=== PATIENT | male | born 1995 | race Caucasian/White ===

== ENCOUNTER 2016-05-09 03:06 | Emergency (ER) | payer MEDICAID, OTHER ==
[~2016-05-09] VITALS: Ht 157.5 cm; Wt 56.5 kg
[2016-05-09 03:51] VITALS: Ht 157.5 cm; Wt 56.5 kg
[2016-05-09] MEDS ORDERED: HYDR-906 PO (06:12)
--- NOTE | 2016-05-09 08:25 | ERD ---
ER Documentation Chief Complaint Date/Time DATE: 05/09/16 TIME: 08:23 Chief Complaint Shingles x4 days. Seen in urgent care. Given meds already HPI This is a 20-year-old male presenting to the emergency department complaining of a rash on the right side of his chest for the past 4 days. Patient states that the pain is sharp rating it 8 out of 10. Patient states that he was seen at [facility] urgent care and they have given him prescription for antiviral and gabapentin however they did not pick it up from the pharmacy yet. Patient is complaining of pain and unable to sleep with since last night ROS All systems reviewed and are negative except as per history of present illness. Medications Home Meds Active Scripts Hydrocodone/Acetaminophen ([place] 5-325 Tablet) 1 Each Tablet, 1 TAB PO Q6H Y for PAIN, #7 TAB Prov:JETT SLOAN PA-C 05/09/16 Allergies Allergies: Coded Allergies: No Known Allergy (Unverified , 05/09/16) PMhx/Soc Hx Alcohol Use: Yes Hx Substance Use: No Hx Tobacco Use: Yes Smoking Status: Current every day smoker Physical Exam Vitals Vital Signs Date Time Temp Pulse Resp B/P Pulse Ox O2 Delivery O2 Flow Rate FiO2 05/09/16 03:51 96.4 58 20 119/65 99 Physical Exam General: WD/WN, in no apparent distress, non-toxic appearing HENT: NC/AT Eyes: Conjunctiva normal Neck: Supple Pulm: Clear to auscultation, normal labored breathing; no wheezing/rales/ rhonchi heard CV: Good capillary refill GI: Non-distended, no guarding Back: No masses Ext: No clubbing, cyanosis, or edema Neuro: Moves on all fours Skin: Erythematous vesicles on the right side of the chest Normal turgor, color, and temperature. No ulcerations or rashes noted. Psych: Normal mood Procedures/MDM This is a 20-year-old male presenting to the emergency department with a rash on the right of his rash is most consistent with herpes zoster. Patient was already seen at [facility] urgent care and was given an antiviral and gabapentin however they were not unable to pepper picker from the pharmacy yet. Patient presents here for pain however I have offered to give him pain medications however they refused since they want to head over to the pharmacy to pepper picker the medication. I have not written any prescriptions since they are he had previous one. I will low suspicion for cellulitis, bacteremia. Patient stable for discharge. Discussed return to the ER for any worsening symptoms. He understands and agrees with Departure Diagnosis: Primary Impression: Shingles Condition: Stable Patient Instructions: Shingles (Herpes Zoster) Additional Instructions: Please take medications as prescribed by other physician La medicina que se le recet puede causarle sueo.NO DEBE MANEJAR NI OPERAR MAQUINARIAS PELIGROSAS mientras esta tomando esta medicina! JETT SLOAN PA-C May 09, 2016 08:24
== END 2016-05-09 06:18 | disposition home or self-care (01) ==
LOC: FTE 03:06
DX: B02.9 Zoster without complications (principal); F17.210 Nicotine dependence, cigarettes, uncomplicated
CPT/HCPCS: 99283

== ENCOUNTER 2016-12-28 17:23 | Emergency (ER) | payer MEDICAID, OTHER ==
[~2016-12-28] VITALS: Wt 69.0 kg
[~2016-12-28 17:23] MED LIST: HYDR-906 PO
[2016-12-28] MEDS ORDERED: ONDANSETRON (ODT) 4 MG TAB ODT STA (18:00)
[2016-12-28] MEDS ORDERED: LIDOCAINE/MYLANTA 40 ML BTL PO STA (18:00)
[2016-12-28] MEDS ORDERED: BELLADONNA/PHENOBARBITAL TAB PO STA (18:00)
--- NOTE | 2016-12-28 18:04 | ERD ---
ER Documentation Chief Complaint Chief Complaint ABD PAIN X 1 WEEK HPI Patient is a 21-year-old male who presents with epigastric pain that he has had on and off for 1 week. He states he went to an outside hospital and they did blood work 2 days ago and was all normal with it did not give him any medication for pain. Pain is worse after eating. He has nausea and states he vomited 3 days ago but no vomiting since. No diarrhea. No dysuria hematuria increased urinary frequency. No fever. Tolerating oral intake. ROS All systems reviewed and are negative except as per history of present illness. Medications Home Meds Active Scripts Hydrocodone/Acetaminophen ([place] 5-325 Tablet) 1 Each Tablet, 1 TAB PO Q6H Y for PAIN, #7 TAB Prov:JETT SLOAN PA-C 05/09/16 Allergies Allergies: Coded Allergies: No Known Allergy (Unverified , 05/09/16) PMhx/Soc Hx Alcohol Use: Yes Hx Substance Use: No Hx Tobacco Use: Yes Smoking Status: Never smoker FmHx Family History: No diabetes Physical Exam Vitals Vital Signs Date Time Temp Pulse Resp B/P Pulse Ox O2 Delivery O2 Flow Rate FiO2 12/28/16 17:28 98.1 78 18 116/69 99 Physical Exam INITIAL VITAL SIGNS: Reviewed by me GENERAL: Awake, alert and oriented x 4, well appearing, nontoxic, speaking in full sentences. No acute distress HEAD: Atraumatic NECK: Supple. No masses. Full range of motion. No meningismus. No midline tenderness. EYES: EOMI. PERRL. RESPIRATORY: Clear to auscultation bilaterally. Symmetric chest wall rise. No wheezing or rales. No accessory muscle use. CV: Regular rate and rhythm. No murmurs, rubs, or gallops. ABDOMEN: Soft, non-distended. Nontender. Negative [place]. Negative McBurneys point tenderness. No CVA tenderness bilaterally. No guarding. No rebound. Procedures/MDM This is a 21-year-old male who presents with epigastric pain. The differential diagnosis includes but is not limited to appendicitis, cholelithiasis, cholecystitis, pancreatitis, hepatitis, gastritis, peptic ulcer disease, bowel obstruction, diverticulitis, renal disease including stones, torsion, AAA, pyelonephritis, and others. Patients is alert, oriented, well appearing, and in no distress with normal vital signs. There is no fever, tachycardia, or tachypnea. Patient had a normal workup at an outside hospital 2 days ago and therefore I do not believe it is necessary to repeat blood work or imaging at this time especially since he has a normal examinee is no tenderness throughout his abdomen including over his appendix which is already removed, or over his gallbladder and no CVA tenderness. Have a low suspicion for any acute emergent etiology for his symptoms. He was given a GI cocktail here and Zofran and discharged with Zofran and Pepcid. Patient counseled regarding my diagnostic impression and care plan. Prior to discharge all questions answered. Pt agrees with treatment plan and understands strict return precautions. Pt is instructed to follow up with primary care provider within 24-48 hours. Precautionary instructions provided including instructions to return to the ER if not improving or for any worsening or changing symptoms or concerns. Departure Diagnosis: Primary Impression: Gastritis Condition: Stable URIEL CLIFTNO PA-C Dec 28, 2016 18:04
[2016-12-28] MEDS ORDERED: ONDA4TAB14 PO (18:05)
[2016-12-28] MEDS ORDERED: FAMO40TA52 PO (18:05)
== END 2016-12-28 18:11 | disposition home or self-care (01) ==
LOC: FTE 17:23
DX: K29.70 Gastritis, unspecified, without bleeding (principal); Z87.891 Personal history of nicotine dependence
CPT/HCPCS: Z7502; Z7610; 99283